=== PATIENT | male | born 1975 | race Caucasian/White ===

== ENCOUNTER 2020-02-12 11:55 | Emergency (ER) | payer OTHER, SELFPAY ==
[2020-02-12 12:02] VITALS: BP 147/78; PULSE 85; TEMP 36.5; O2SAT 97
--- NOTE | 2020-02-12 12:43 | DI.RAD_ITS ---
EXAM: XR HAND LT COMPLETE CLINICAL HISTORY: fall, injury, laceration TECHNIQUE: COMPARISON: No exams were available for comparison FINDINGS: Three views were obtained. No fracture is seen. No foreign body identified. IMPRESSION:
--- NOTE | 2020-02-12 13:11 | W.ED.GENAD ---
Discharge Plan Disposition Patient Disposition: HOME Condition: Stable Discharge Details Chief Complaint: Laceration Clinical Impression: Hand laceration Primary Care Provider: Román Kiser ED Provider: Merrick Quan Home Meds and New Rx's Prescriptions: No Action No Known Home Meds RF: 0 Discharge Instructions Instructions: Laceration (ED) Additional Instructions: Keep the area clean and dry. Change antibiotic dressing daily. [id number] medications such as Tylenol and/or Motrin as directed for discomfort. Please watch for new or worsening symptoms and return to the ER for any concerns. I do recommend wearing the thumb spica splint as this will help immobilize the area so you do not tear out the sutures. Given the area is in high tension, I would not remove the sutures for 10-14 days. Discharge Data Discharge Date/Time-TO BE ENTERED AT DEPARTURE: 02/12/20 13:30 Medical Decision Making Presents for a laceration on his nondominant hand. Neuro, vascular, tendon intact. Will update tetanus, obtain x-ray to rule out foreign body and or bony involvement, and repair the laceration. After the repair, bulky antibiotic dressing applied as well as a thumb spica splint. Imaging Data Radiologic Study: Attestation: I personally reviewed and interpreted this imaging study as follows: Imaging: X-Ray My impression: Left hand, negative as read by me HPI General Mode of arrival: ambulatory. Date/Time Provider Initiated Documentation: 02/12/20 12:03. Limitations to Documentation: no limitations. Information obtained by: patient. HPI Narrative: 44-year-old gentleman with no significant past medical history, [id number], presents having slipped and sustained a laceration on his left hand secondary to a piece of metal from a sink. Denies any other injury. Rates his pain as mild. Denies numbness, tingling, weakness. Believes he is not up-to-date with his tetanus status. This occurred just prior to arrival Related Data Home Medications Medication Instructions Recorded Confirmed Unknown [No Known Home Meds] 02/12/20 02/12/20 Allergies Allergy/AdvReac Type Severity Reaction Status Date / Time No Known Allergies Allergy Unverified 02/12/20 12:05 General Stated Complaint: Laceration PILY: 4 Review of Systems Constitutional Constitutional: Denies headache(s) and Denies weakness ENT Ears, Nose, Mouth, and Throat: Denies headache(s) Gastrointestinal Gastrointestinal: Denies nausea and Denies vomiting Musculoskeletal Musculoskeletal: Denies back pain, Denies numbness and Denies tingling Integumentary/Breasts Skin/Breast: Denies rash Neurologic Neurologic: Denies headache(s), Denies numbness, Denies tingling and Denies weakness [facility] Social History Smoking/Tobacco Use Status: Never Alcohol Intake: current Substance use type: does not use Do you feel safe at home: Yes Exam Const General: cooperative, healthy appearing, comfortable and no acute distress Orientation: alert and awake HENMT Head: normal to inspection, normocephalic and atraumatic Mouth: moist mucous membranes Eyes Conjunctivae: conjunctivae normal Neck Neck: normal visual inspection, trachea midline and supple Resp Effort & Inspection: normal respiratory effort and able to speak in complete sentences Cardio Rate: regular rate Rhythm: regular rhythm Skin General skin exam: no rashes or lesions noted Neuro General: patient alert, patient awake, moves all extremities and no focal motor deficits Sensory Exam: no sensory deficits noted Extrem Left upper extremity: full ROM, normal capillary refill and hand Details: normal capillary refill, neuromotor exam normal, neurosensory exam normal, tendon exam normal, tenderness, vascular exam, normal ROM of fingers and laceration (Thenar aspect, 5.5 cm laceration. Bleeding controlled. No FB) Psych Appearance: grossly normal Mental Status: mental status grossly normal Course Vital Signs Vital signs: Vital Signs Temperature 36.5 C 02/12/20 12:02 Pulse 85 02/12/20 12:02 Blood Pressure 147/78 H 02/12/20 12:02 Pulse Oximetry 97 02/12/20 12:02 Temperature 36.5 C 02/12/20 12:02 Temperature Source Oral 02/12/20 12:02 Pulse 85 02/12/20 12:02 Respiratory Effort Non-Labored 02/12/20 12:04 Blood Pressure 147/78 H 02/12/20 12:02 Blood Pressure Position Sitting 02/12/20 12:02 Pulse Oximetry 97 02/12/20 12:02 Oxygen Delivery Method Room Air 02/12/20 12:02 Oxygen Flow Rate 0 02/12/20 12:02 Pain Level 2 02/12/20 12:04 Procedures Laceration Laceration 1: Site: hand Side (If applicable): left Size (cm): 5.5 Description: linear Depth: simple, single layer Local Anesthetic: Lidocaine 2% and Bupivicaine 0.5% Amount of anesthesia used (mL): 8 Pre-repair: wound explored, irrigated extensively and deep structures intact Skin layer closed with: nylon Size (cm): 4-0 Number of sutures: 11 Technique: simple, interrupted
[2020-02-12 13:23] VITALS: BP 161/86; PULSE 80; TEMP 37; O2SAT 97
== END 2020-02-12 13:30 | disposition home or self-care (01) ==
LOC: ER 13:30
PROVIDERS: Emergency Provider Physician Assistant; PCP Internal Medicine
DX: S61.412A Laceration without foreign body of left hand, initial encounter (principal); W26.8XXA Contact with other sharp object(s), not elsewhere classified, initial encounter
CPT/HCPCS: 12002; 90471; 73130; L3807

== ENCOUNTER 2025-01-05 02:30 | Outpatient (CLI) | payer BC, SELFPAY ==
--- NOTE | 2025-01-05 | DI.RAD_ITS ---
Exam(s) XR SACROILIAC JOINTS EXAM: XR SACROILIAC JOINTS CLINICAL HISTORY: PAIN LT SACROILIAC JOINT, M53.3 SACROCOCCYGEAL DISORDER. TECHNIQUE: 2D digital imaging was performed. COMPARISON: CR LUMBAR SPINE COMPLETE from 07/20/2010 FINDINGS: Bones: No fracture is present. No bony destructive lesion is seen. Alignment is satisfactory. SI Joint: No fusion, erosions or sclerosis is seen. Soft Tissue: Normal. IMPRESSION: Normal radiographs of the SI Joints. DATA REPOSITORY: RADIATION DOSE DELIVERED:
--- NOTE | 2025-01-05 | DI.RAD_ITS ---
Exam(s) XR SHOULDER RT COMPLETE 2+V EXAM: XR SHOULDER RT COMPLETE 2+V CLINICAL HISTORY: ADHESIVE CAPSULITIS RT SHOULDER, M75.01, CHRONIC PAIN/STIFFNESS ROM. TECHNIQUE: 2D digital imaging was performed. Five views. COMPARISON: CR RIGHT SHOULDER COMPLETE from 08/18/2012 FINDINGS: BONES: No acute fracture is present. No bony destructive lesion is seen. JOINTS: No dislocation present. The AC joint shows no significant spurring. There is narrowing of t he glenohumeral joint and prominent inferior spur at the humeral head. There is mild spurring at the inferior glenoid is well as subchondral cyst formation. SOFT TISSUE: Normal. 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 DATA REPOSITORY: RADIATION DOSE DELIVERED:
== END 2025-01-05 02:50 ==
PROVIDERS: PCP Family Medicine; Visit Provider Family Medicine
DX: M53.3 Sacrococcygeal disorders, not elsewhere classified (principal)
CPT/HCPCS: 72202; 73030

== ENCOUNTER 2025-02-02 18:21 | Outpatient (REF) | payer BC, SELFPAY ==
[2025-02-02 20:40] LABS: Abs Immature Grans 0.02 10^3/uL (0.0-0.06); Absolute Basophil Count 0.02 10^3/uL (0.0-0.2); Absolute Eosinophil Count 0.11 10^3/uL (0.0-0.7); Absolute Lymphocyte Count 2.16 10^3/uL (1.2-3.4); Absolute Monocyte Count 0.57 10^3/uL (0.1-0.8); Absolute Neutrophil Count 3.62 10^3/uL (1.2-6.7); Basophils % 0.3 %; Eosinophils % 1.7 %; HCT 43.9 % (40.0-50.0); HGB 14.7 g/dL (13.5-17.5); Immature Grans % 0.3 %; Lymphocytes % 33.2 %; MCH 28.9 pg (27.0-33.0); MCHC 33.5 % (32.0-36.0); MCV 86 fL (80-95); MPV 9.4 fL (8.0-11.0); Monocytes % 8.8 %; Neutrophils % 55.7 %; Platelet Count 249 10^3/uL (130-400); RBC 5.09 10^6/uL (4.36-5.78); RDW 13.8 % (11.8-14.1); RDW-SD 43.4 fL
[2025-02-02 20:57] LABS: Hemoglobin A1C 6.2 % (<5.7)
[2025-02-02 20:59] LABS: ALT 46 U/L (16-63); AST 22 U/L (15-37); Alkaline Phosphatase 92 U/L (46-116); BUN 18 mg/dL (7-18); Bilirubin, Total 0.4 mg/dL (0.2-1.0); CREATININE 1.1 mg/dL (0.70-1.30); Calcium 9.1 mg/dL (8.5-10.1); Calculated LDL 161 mg/dL (<100); Chloride 108 mmol/L (98-107); Cholesterol 236 mg/dL (<200); Estimated GFR 81.28 (mL/min/1.73m2); Glucose 91 mg/dL (74-106); HDL Cholesterol 47 mg/dL (>or=40); Potassium 4.4 mmol/L (3.5-5.1); Sodium 142 mmol/L (136-145); TSH 6.42 uIU/mL (0.36-3.74); Total Protein 7.2 g/dL (6.4-8.2); Triglyceride 144 mg/dL (<150)
[2025-02-03 18:52] LABS: PSA, Screening 0.6 ng/mL (<=3.5)
== END 2025-02-02 18:22 | disposition home or self-care (01) ==
LOC: NCHCN 18:21
PROVIDERS: PCP Family Medicine; Visit Provider Family Medicine
DX: Z00.00 Encounter for general adult medical examination without abnormal findings (principal); R35.1 Nocturia
CPT/HCPCS: 80053; 80061; 84153; 83036; 84443; 85025

== ENCOUNTER 2025-04-27 18:32 | Outpatient (REF) | payer BC, SELFPAY ==
[2025-04-27 19:02] LABS: Calculated LDL 166 mg/dL (<100); Cholesterol 234 mg/dL (<200); FREE T4 0.82 ng/dL (0.76-1.46); HDL Cholesterol 40 mg/dL (>or=40); TSH 2.58 uIU/mL (0.36-3.74); Triglyceride 144 mg/dL (<150)
[2025-04-28 18:12] LABS: T3, Total 132 ng/dL (97-169)
== END 2025-04-27 18:33 | disposition home or self-care (01) ==
LOC: NCHCN 18:32
PROVIDERS: PCP Family Medicine; Visit Provider Family Medicine
DX: E03.9 Hypothyroidism, unspecified (principal)
CPT/HCPCS: 80061; 84439; 84443; 84480

== ENCOUNTER 2025-08-13 16:32 | Outpatient (REF) | payer BC, SELFPAY ==
[2025-08-13 19:40] LABS: Calculated LDL 179 mg/dL (<100); Cholesterol 240 mg/dL (<200); HDL Cholesterol 45 mg/dL (>or=40); T4 6.7 ug/dL (4.7-13.3); TSH 2.59 uIU/mL (0.36-3.74); Triglyceride 84 mg/dL (<150)
[2025-08-14 22:41] LABS: T3,Free 3.9 pg/mL (2.8-5.3)
== END 2025-08-13 16:33 | disposition home or self-care (01) ==
LOC: NCHCN 16:32
PROVIDERS: PCP Family Medicine; Visit Provider Family Medicine
DX: E03.9 Hypothyroidism, unspecified (principal); E78.5 Hyperlipidemia, unspecified
CPT/HCPCS: 80061; 84436; 84443; 84481